=== PATIENT | female | born 1940 | race Caucasian/White ===

== ENCOUNTER 2018-11-11 10:54 | Emergency (ER) | payer MEDICARE ==
[2018-11-11] MEDS ORDERED: cefTRIAXone 1 GM Vial IM ONE (12:12)
[2018-11-11] MEDS ORDERED: Levofloxacin 500 MG Tab ONE (12:35)
[2018-11-11] MEDS ORDERED: Benzonatate 100 MG Cap ONE (12:35)
--- NOTE | 2018-11-11 14:12 | ER ---
REASON FOR EMERGENCY ROOM VISIT: Cough, malaise, and myalgias. HISTORY OF PRESENT ILLNESS: This is a 77-year-old smoker who began to feel "worn out" about 6 days ago. This was followed by the gradual onset of some nausea, sore throat , and later on a nonproductive cough. With coughing paroxysms, she did have what she describes as "dry heaves." She is a smoker and has smoked even up until this morning. She has not had any fever or chills, but her appetite is diminished. She has had myalgias but denies any sweats. She has not had any diarrhea. She denies any irritative voiding symptoms. SOCIAL HISTORY: She is a heavy smoker. She drinks occasionally. PAST MEDICAL HISTORY: 1. Hyperthyroidism. 2. Hypertension. 3. GERD. 4. Congestive heart failure. 5. History of partial hysterectomy. ALLERGIES: NONE. MEDICATIONS: Medications reviewed. Please see EMR. They include lisinopril, Coreg, methimazole, Nexium, baby aspirin, and Tylenol. REVIEW OF SYSTEMS: Pertinent positives and negatives as listed in the HPI. PHYSICAL EXAMINATION: GENERAL: She is somewhat pale appearing, but alert and jocular, and in no acute distress. VITAL SIGNS: Blood pressure 133/50, pulse of 73, O2 sats 96%. Temperature 98.9. HEENT: Head is normocephalic. There is no scleral icterus. Her oral mucosa appears normal. There is no exudates or erythema in the pharynx. NECK: Supple. No adenopathy. No JVD is noted. CHEST: She does have some coarse crackles in her left mid lung field. No rhonchi or wheezes are noted. Good air exchange is noted bilaterally. CARDIAC: Regular rate without murmur. ABDOMEN: Soft and nontender. No hepatosplenomegaly. No masses. EXTREMITIES: Normal pulses. No edema. LABORATORY DATA: Her CMP is normal with a creatinine of 1.03. A CBC was obtained showing a WBC of 12.6 x10 to 3rd with neutrophilia and a left shift. Her hemoglobin is 11.9. Her urinalysis does show some white cells, but few bacteria. Chest x-ray shows an infiltrate consistent with pneumonia in the lingular area. IMPRESSION: 1. Lingular pneumonia. 2. Chronic smoking history. 3. Other diagnoses as listed above. PLAN: We will treat her with 1 g of Rocephin IM. She was also given a prescription for levofloxacin 500 mg p.o. daily x7 days. Radiologist's impression is such that the possibility of an underlying malignancy could not be excluded on the x-ray. Given her history of heavy smoking, I think it is vitally important that she be followed up with a repeat chest x-ray in 10-14 days, possibly even a CT scan. For this reason, I emphasized to her emphatically that she be seen by her primary care provider in 1-2 weeks' time. If she feels worse in any way, in the interim, she should return for another evaluation. I indicated that it is imperative that she does refrain from smoking at least until she gets over this pneumonia. She assures me she will. She was also given a prescription for Tessalon Perles 100 mg, dispensed #10, 1 q.8 hours p.r.n. coughing. All questions were answered. She understands and agrees to this plan. MILDRED /[id number] MTDD
--- NOTE | 2018-11-12 05:16 | CR ---
DATE OF SERVICE: 11/11/18 CLINICAL DATA: Cough. PA AND LATERAL CHEST: No priors. The heart is enlarged. There is calcification of the aortic arch. The lungs are hyperexpanded. There is a poorly defined infiltrate with consolidation involving the lingular segment of the left upper lobe, most likely representing pneumonia. The lungs otherwise clear. No pneumothorax. No pleural effusions. There is a partial compression fracture of the T12 vertebra, age indeterminate. No other significant findings. Followup exam is recommended. [id number] [facility]
== END 2018-11-11 12:45 | disposition home or self-care (01) ==
LOC: LB.ED 10:54
DX: J18.1 Lobar pneumonia, unspecified organism (principal); I11.0 Hypertensive heart disease with heart failure; I50.9 Heart failure, unspecified; K21.9 Gastro-esophageal reflux disease without esophagitis; Z90.710 Acquired absence of both cervix and uterus; F17.200 Nicotine dependence, unspecified, uncomplicated; Z79.82 Long term (current) use of aspirin; Z79.899 Other long term (current) drug therapy
CPT/HCPCS: 36415; 71046; 80048; 81001; 85025; 96372; 99283; 99284; A9270; J0696

== ENCOUNTER → 2019-05-03 | Outpatient (CLI) | payer MEDICARE | LOC: LB.CLINIC 14:01 | PROVIDERS: ATTEND Nurse Practitioner Family | DX: I50.9 Heart failure, unspecified (principal); R05 Cough | CPT/HCPCS: 36415; 80048; 83880; 85025 ==

== ENCOUNTER 2022-02-21 18:43 | Emergency (ER) | payer MEDICARE ==
[2022-02-21] MEDS ORDERED: Sodium Chloride 0.9% 1,000 ML IV ONE (18:52)
[2022-02-21] MEDS ORDERED: Ondansetron 4 MG/2 ML SDV IVPUSH ONE (18:53)
[2022-02-21] MEDS ORDERED: Atropine/Diphenoxylate 0.025-2.5 MG/5 ML Soln 60 ML Bottle PO ONE (18:53)
[2022-02-21] MEDS ORDERED: Loperamide 2 MG Cap PO ONE (19:30)
[2022-02-21 19:34] LABS: ESTIMATED GFR 43 mL/min (>60)
[2022-02-21] MEDS ORDERED: NS + KCl 20mEq/L 1,000 ML IV SCH (19:45)
[2022-02-21] MEDS ORDERED: metroNIDAZOLE/Normal Saline 500 MG in Premix Bag 1 BAG IV ONE (20:39)
[2022-02-21] MEDS ORDERED: metroNIDAZOLE/Normal Saline 100 ML ONE (20:51)
[2022-02-21] MEDS ORDERED: Acetaminophen/HYDROcodone 325-5 MG Tab ONE (22:00)
[2022-02-21] MEDS ORDERED: metroNIDAZOLE 500 MG Tab ONE (22:00)
== END 2022-02-21 22:38 | disposition home or self-care (01) ==
LOC: LB.ED 18:43
DX: K52.9 Noninfective gastroenteritis and colitis, unspecified (principal); Z79.899 Other long term (current) drug therapy; Z79.82 Long term (current) use of aspirin
CPT/HCPCS: 36415; 74176; 80053; 83605; 85025; 96365; 96366; 96368; 96375; 99283; 99284; A9270; J2405; J3480; J3490; J7030